=== PATIENT | male | born 1950 | race Caucasian/White ===

== ENCOUNTER → 2016-09-26 | Outpatient (CLI) | payer OTHER, MEDICARE | LOC: BMCIMAGING 10:33 | PROVIDERS: ATTEND Podiatrist Foot & Ankle Surgery | DX: S92.345A Nondisplaced fracture of fourth metatarsal bone, left foot, initial encounter for closed fracture (principal); R93.6 Abnormal findings on diagnostic imaging of limbs; M19.072 Primary osteoarthritis, left ankle and foot; M79.672 Pain in left foot ==

== ENCOUNTER → 2016-10-22 | Outpatient (CLI) | payer OTHER, MEDICARE | LOC: BHCLAF 12:45 | PROVIDERS: ATTEND Internal Medicine Cardiovascular Disease | DX: I25.10 Atherosclerotic heart disease of native coronary artery without angina pectoris (principal); I48.91 Unspecified atrial fibrillation; Z95.0 Presence of cardiac pacemaker | CPT/HCPCS: 93005-PO ==

== ENCOUNTER → 2016-11-22 | Outpatient (CLI) | payer OTHER, MEDICARE | LOC: CIMAGING 14:21 | PROVIDERS: ATTEND Physician Assistant | DX: M51.26 Other intervertebral disc displacement, lumbar region (principal); M51.27 Other intervertebral disc displacement, lumbosacral region; M48.06 Spinal stenosis, lumbar region; M48.07 Spinal stenosis, lumbosacral region; M53.3 Sacrococcygeal disorders, not elsewhere classified | CPT/HCPCS: 72131-PO ==

== ENCOUNTER → 2016-11-30 | Outpatient (CLI) | payer OTHER, MEDICARE | LOC: BHCLAF 14:00 | PROVIDERS: ATTEND Internal Medicine Cardiovascular Disease | DX: I25.10 Atherosclerotic heart disease of native coronary artery without angina pectoris (principal) | CPT/HCPCS: 93306-PO ==

== ENCOUNTER → 2017-06-18 | Outpatient (CLI) | payer OTHER, MEDICARE | LOC: BHLMT 14:00 | PROVIDERS: ATTEND Internal Medicine Cardiovascular Disease | DX: I48.0 Paroxysmal atrial fibrillation (principal); I10 Essential (primary) hypertension | CPT/HCPCS: 78452; 93017; A9500; J2785 ==

== ENCOUNTER 2017-07-19 12:02 | Day surgery (SDC) | payer OTHER, MEDICARE ==
[2017-07-19] MEDS ORDERED: DIAZEPAM 5 MG TAB PO ONE (12:11)
[2017-07-19] MEDS ORDERED: NS 1,000 ML IV ONE (12:11)
[2017-07-19] MEDS ORDERED: diphenhydrAMINE 25 MG CAP PO ONE (12:11)
[2017-07-19] MEDS ORDERED: ASPIRIN EC 325 MG TAB PO ONE (12:11)
[2017-07-19] MEDS ORDERED: FAMOTIDINE 20 MG TAB PO ONE (12:11)
--- NOTE | 2017-07-19 12:27 | CPEKG ---
Heart Rate: 60 RR Interval: 1000 P-R Interval: 208 QRSD Interval: 148 QT Interval: 472 QTC Interval: 472 P [place]: 72 QRS [place]: -83 T Wave [place]: 100 EKG Severity - ABNORMAL ECG - EKG Impression: ATRIAL-VENTRICULAR DUAL-PACED RHYTHM Electronically Signed By: Corby Cortes 19-Jul-2017 14:15:21
[2017-07-19] MEDS ORDERED: LIDOCAINE 1% 300 MG/30 ML SDV ONE (12:36)
[2017-07-19] MEDS ORDERED: IOPAMIDOL (ISOVUE-370) 150 ML BTL IV ONE ×2 (12:37→14:28)
[2017-07-19 12:46] LABS: PLATELET COUNT 100 10^3/uL (150-400)
[2017-07-19 12:58] LABS: INR 1.05 (0.83-1.16); PROTIME(PATIENT) 13.9 SEC (12.0-15.0)
--- NOTE | 2017-07-19 13:38 | PDHPUP ---
History & Physical Update H&P update statement: This history and physical update is based on an assessment of the patient which was completed after admission or registration (within 24 hours), but prior to the surgery/procedure. H&P update: H&P reviewed & patient examined, no change in patient's condition since H&P completed
--- NOTE | 2017-07-19 13:38 | PDPROPOC ---
Sedation Plan of Care Sedation Plan of Care: vital signs stable, mental status noted, patient educated of risks, benefits, alternatives, patient can tolerate sedation ASA Classification: ASA 2 Planned drugs: fentanyl, midazolam Mallampati Score: Class 2 Mallampati Reference Image: Patient passed 3-3-2 rule?: Yes
[2017-07-19] MEDS ORDERED: MIDAZOLAM 2 MG/2 ML VIAL ONE (14:01)
[2017-07-19] MEDS ORDERED: fentaNYL 100 MCG/2 ML INJ ONE (14:01)
--- NOTE | 2017-07-19 15:17 | PDDXCAT ---
Diagnostic Cath Note - . Date: 07/19/17 [employer]: Marita Indication: Class I/II angina, intolerance to med therapy or failure to respond - Procedure Access: right groin Procedure: left heart catheterization, coronary angiography, left ventriculogram , NI injection, other (free radial injection) - Materials Left Heart Cath size: 6F Left Heart Cath materials: standard multipack (JL4, JR4, pigtail), other (IMC catheter) - Findings-Left Heart Catheterization LM: Normal and bifurcates into the LAD and left circumflex. LAD: There is a 90% proximal stenosis. There are several fairly large septal perforators. There is GABRIELLA 3 flow in the mid to distal vessel with evidence of competitive flow from the NI graft. LCX: 100% occluded proximally RCA: Right dominant. 50% mid vessel lesion. rSVG: The free radial graft with sequential anastomoses to the 1st and 2nd obtuse marginals is patent with good flow in the obtuse marginals. NI: The NI to LAD is widely patent. EDP: 26 LVEF: 65% Wall motion: Normal - Findings-Right Heart Catheterization AO: Aortic pressure is 130/70. LV pressure is 124 for 7. There is no aortic stenosis. Complications: none Estimated blood loss: <50ml Closure method: Angioseal Assessment: Known severe left system disease. Moderate non flow-limiting RCA disease. Patent NI to the LA D. Patent sequential free radial graft to both obtuse marginals. Normal ejection fraction. Plan: No intervention. Evaluate for noncardiac causes of chest pain.
[2017-07-19] MEDS ORDERED: ATROPINE SULFATE 1 MG/10 ML SYR IVP PRN (15:23)
[2017-07-19] MEDS ORDERED: ONDANSETRON 4 MG/2 ML VIAL IVP PRN (15:23)
[2017-07-19] MEDS ORDERED: OXYCODONE/APAP 5/325 TAB PO PRN (15:23)
[2017-07-19] MEDS ORDERED: HYDROCODONE/APAP 5/325 TAB PO PRN (15:23)
[2017-07-19] MEDS ORDERED: NITROGLYCERIN 0.4 MG BTL SL PRN (15:23)
== END 2017-07-19 18:03 | disposition home or self-care (01) ==
LOC: FCATH 12:02
PROVIDERS: ATTEND Internal Medicine Cardiovascular Disease
DX: I25.119 Atherosclerotic heart disease of native coronary artery with unspecified angina pectoris (principal); I10 Essential (primary) hypertension; E78.5 Hyperlipidemia, unspecified; I48.0 Paroxysmal atrial fibrillation; I49.5 Sick sinus syndrome; Z95.1 Presence of aortocoronary bypass graft; Z79.01 Long term (current) use of anticoagulants; Z95.0 Presence of cardiac pacemaker
CPT/HCPCS: C1760; J1644; J2250; J3010; Q9967

== ENCOUNTER → 2017-12-17 | Outpatient (CLI) | payer OTHER, MEDICARE | LOC: BMCIMAGING 12:47 | PROVIDERS: ATTEND Internal Medicine Rheumatology | DX: M25.552 Pain in left hip (principal) ==

== ENCOUNTER → 2018-01-09 | Outpatient (CLI) | payer OTHER, MEDICARE | LOC: BHFA 13:00 | PROVIDERS: ATTEND Internal Medicine Cardiovascular Disease | DX: I47.2 Ventricular tachycardia (principal); I48.92 Unspecified atrial flutter; I25.10 Atherosclerotic heart disease of native coronary artery without angina pectoris; M06.9 Rheumatoid arthritis, unspecified; Z95.0 Presence of cardiac pacemaker ==

== ENCOUNTER 2018-02-11 06:56 | Day surgery (SDC) | payer OTHER, MEDICARE ==
[2018-02-11] MEDS ORDERED: NS 1,000 ML IV ONE (06:57)
[2018-02-11 07:35] LABS: PLATELET COUNT 96 10^3/uL (150-400)
[2018-02-11 07:43] LABS: INR 1.05 (0.83-1.16); PROTIME(PATIENT) 13.9 SEC (12.0-15.0)
[2018-02-11] MEDS ORDERED: MIDAZOLAM 2 MG/2 ML VIAL IVP ONE (07:52)
--- NOTE | 2018-02-11 07:52 | PDANEPAE ---
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 - Allergies Allergies/Adverse Reactions: hydroxychloroquine Allergy (Verified 07/19/17 13:50) chest itch - Home Medications Home medications: home medication list seen and reviewed Home Medications: Actemra 800mg 800 mg IV Q28D 06/05/13 [Last Taken 1 Day Ago ~02/10/18] Herbals/Supplements -Info Only 1 each PO DAILY 06/05/13 [Last Taken 1 Day Ago ~ 02/10/18] Leflunomide [Arava 20 mg (*)] 20 mg PO Q2D 06/05/13 [Last Taken 1 Day Ago ~02/10] Levothyroxine [Synthroid 75 mcg (*)] 75 mcg PO DAILY06 06/05/13 [Last Taken 1 Day Ago ~02/10/18] Multivitamins [Multivitamin (*)] 1 each PO DAILY 06/05/13 [Last Taken 1 Day Ago ~02/10/18] Omeprazole [Prilosec 20 mg] 20 mg PO DAILY 06/05/13 [Last Taken 1 Day Ago ~02/10] Pilocarpine HCl [Salagen 5mg (*)] 5 mg PO TID 06/05/13 [Last Taken 1 Day Ago ~] cycloSPORINE 0.05% [Restasis Opht Drops(*)] 1 drop EACHEYE BID 06/05/13 [Last Taken 1 Day Ago ~02/10/18] valACYclovir [Valtrex (*)] 1,000 mg PO BID PRN 06/05/13 [Last Taken 1 Day Ago ~ 02/10/18] Cholecalciferol Vit D3 [Vitamin D3 (*)] 1,000 units PO BID 01/25/14 [Last Taken 1 Day Ago ~02/10/18] Fluticasone Nasal [Flonase Nasal [place]] 1 sprays NASAL DAILY PRN 01/25/14 [Last Taken 1 Day Ago ~02/10/18] Loratadine [Claritin 10 mg] 10 mg PO DAILY 01/25/14 [Last Taken 1 Day Ago ~02/10] Aspirin [Aspirin 81mg (*)] 81 mg PO DAILY 07/19/17 [Last Taken 1 Day Ago ~] Cephalexin [Keflex (*)] 500 mg PO BID 07/19/17 [Last Taken 1 Day Ago ~02/10/18] Metoprolol Tartrate [Lopressor 25 mg (*)] 25 mg PO DAILY 07/19/17 [Last Taken 2 Days Ago ~02/09/18] Metoprolol Tartrate [Lopressor 50 mg (*)] 50 mg PO HS 07/19/17 [Last Taken 2 Days Ago ~02/09/18] Nitroglycerin [Nitrostat 0.4 mg (*)] 0.4 mg SL Q5M PRN 07/19/17 [Last Taken Unknown] Rosuvastatin Calcium [Crestor] 10 mg PO HS 07/19/17 [Last Taken 1 Day Ago ~02/10] tiZANidine HCL [Zanaflex 2MG (*)] 4 mg PO TID PRN 07/19/17 [Last Taken 1 Day Ago ~02/10/18] - NPO status NPO Status: no food or drink >8 hours - Anes Hx Anes Hx: no prior problems - Smoking Hx Smoking Status: Former smoker - Family Anes Hx Family Anes Hx: none ANE Labs/Vital Signs - Labs Result Diagrams: 02/11/18 07:10 02/11/18 07:10 - Vital Signs Vital Signs: reviewed preoperatively; see RN documention for details Height: 180.34 cm Weight: 97.522 kg ANE Physical Exam - Airway Neck exam: FROM Mallampati Score: Class 2 Mouth exam: poor dentition - Pulmonary Pulmonary: no respiratory distress - Cardiovascular Cardiovascular: regular rate and rhythym - ASA Status ASA Status: III ANE Anesthesia Plan Anesthesia Plan: general endotracheal anesthesia
[2018-02-11] MEDS ORDERED: DEXAMETHASONE 4 MG/ML VIAL ONE (08:14)
[2018-02-11] MEDS ORDERED: ONDANSETRON 4 MG/2 ML VIAL ONE (08:14)
[2018-02-11] MEDS ORDERED: PROPOFOL 200 MG/20 ML VIAL ONE ×2 (08:14→10:25)
[2018-02-11] MEDS ORDERED: LIDOCAINE 2% 100 MG/5 ML SYR ONE (08:14)
[2018-02-11] MEDS ORDERED: ROCURONIUM 50 MG/5 ML VIAL ONE (08:14)
[2018-02-11] MEDS ORDERED: fentaNYL 100 MCG/2 ML INJ ONE (08:14)
--- NOTE | 2018-02-11 08:54 | PDGENHP ---
History & Physical Chief Complaint: vt on pm check Relevant Physical Exam: s1s2 rrr cta ao3 Cardiorespiratory Assessment: for eps and upgrade to icd if vt induced. no ablation planned
[2018-02-11] MEDS ORDERED: MIDAZOLAM 2 MG/2 ML VIAL ONE (10:14)
[2018-02-11] MEDS ORDERED: LIDOCAINE 1% 300 MG/30 ML SDV ONE (10:14)
[2018-02-11] MEDS ORDERED: BUPIVACAINE 0.75% 10 ML SDV ONE (10:14)
[2018-02-11] MEDS ORDERED: ISOPROTERENOL HCL/D5W 0.2 MG/50 ML BAG IV ONE (10:14)
[2018-02-11] MEDS ORDERED: ceFAZolin 2 GM in D5W 100 ML IV ONE (10:45)
[2018-02-11] MEDS ORDERED: BACITRACIN 50,000 UNIT in SODIUM CL IRRIG SOLUTION 1,000 ML IRR ONE (11:00)
[2018-02-11] MEDS ORDERED: ceFAZolin 2 GM/DEXTROSE 100 ML IV ONE (11:00)
--- NOTE | 2018-02-11 11:37 | EPPROC ---
Electrophysiology Procedure Note: DIAGNOSTIC ELECTROPHYSIOLOGIC STUDY Procedures performed: 1. Fluoroscopy 2. EP evaluation with RA/RV pace/record, with arrhythmia induction 3. EP evaluation with RA/RV pace record, insert/reposition catheter, with arrhythmia induction 4. Programmed stimulation + pacing after IV drug INDICATION: Nonsustained VT on pacemaker check PROCEDURE: Catheters & Anesthesia: The patient arrived in the Electrophysiology Laboratory in the fasting state. The right clavicular region, right groin, & left groin area were prepped & draped in the usual sterile manner. Dr. Naveen Ventura administered anesthesia. Appropriate non-invasive blood pressure, pulse oximetry & end-tidal CO2 monitoring was established. All catheters were placed percutaneously using the modified Seldinger technique , and advanced into position under fluoroscopic guidance. One #7 Irish deflectable octapolar electrode catheter was advanced to the His-bundle position via the left femoral vein (2mm spacing). One #7 Irish 20 pole quadrapolar catheter was advanced to the posterior right atrium and placed along the frantz terminalis. Programmed stimulation was performed from the right atrium, right ventricle. There was antegrade WBB at baseline. No sustained ventricular tachycardia was induced during programmed stimulation, using standard protocols, at baseline or during graded doses of isoproterenol up to 2 mcg/min. The catheters were removed. Vascular access sheaths were removed in the EP lab after placing subcutaneous pursestring suture. The patient was transferred to the cardiovascular holding area in stable condition. There were no apparent complications. CONCLUSIONS 1. Normal sinus and AV node function. 2. No sustained ventricular arrhythmias induced. 3. No apparent complications. Patient Problems: Problems Problem Status Onset Ventricular tachycardia Acute
[2018-02-11] MEDS ORDERED: ONDANSETRON 4 MG/2 ML VIAL IVP PRN (11:43)
[2018-02-11] MEDS ORDERED: HYDROmorphONE/DILAUDID 2 MG/ML INJ IVP PRN (11:43)
[2018-02-11] MEDS ORDERED: DEXAMETHASONE 4 MG/ML VIAL IVP PRN (11:43)
[2018-02-11] MEDS ORDERED: ACETAMINOPHEN 500 MG TAB PO PRN (11:43)
[2018-02-11] MEDS ORDERED: HYDROCODONE/APAP 5/325 TAB PO PRN (11:43)
[2018-02-11] MEDS ORDERED: oxyCODONE IR 5 MG TAB PO PRN (11:43)
[2018-02-11] MEDS ORDERED: fentaNYL 100 MCG/2 ML INJ IVP PRN (11:43)
[2018-02-11] MEDS ORDERED: NALOXONE HCL 0.4 MG/ML INJ IVP PRN (11:43)
[2018-02-11] MEDS ORDERED: MEPERIDINE 25 MG/0.5 ML AMP IVP PRN (11:43)
--- NOTE | 2018-02-11 11:43 | POSTANESTH ---
Post Anesthetic Evaluation Cardiovascular Status: Similar to Pre-Op Cond Respiratory Status: Similar to Pre-op Cond. Level of Consciousness/Mental Status: Can Participate in Eval, Mildly Sleepy, Arousable Pain Control: Adequate, Prn Tx Ordered Nausea/Vomiting Control: Adequate, Prn Tx Ordered Complications Possibly Related to Anesthesia: None Noted
[2018-02-11] MEDS ORDERED: KETOROLAC 30 MG/1 ML SDV ONE (11:53)
[2018-02-11] MEDS ORDERED: KETOROLAC 15 MG/1 ML SDV IVP ONE (12:00)
[2018-02-11] MEDS ORDERED: KETOROLAC 15 MG/1 ML SDV IVP PRN (12:30)
--- NOTE | 2018-02-16 14:47 | CPEKG ---
Test Reason : OPEN Blood Pressure : / mmHG Vent. Rate : 060 BPM Atrial Rate : 060 BPM P-R Int : 202 ms QRS Dur : 154 ms QT Int : 491 ms P-R-T Axes : 081 -83 097 degrees QTc Int : 491 ms Atrial-ventricular dual-paced complexes Confirmed by Edward Langford ([id number]) on 02/16/2018 2:46:54 PM Referred By: Confirmed By:Edward Langford
== END 2018-02-11 17:54 | disposition home or self-care (01) ==
LOC: FCATH 06:56
PROVIDERS: ATTEND Internal Medicine Cardiovascular Disease
PROC: 5A1223Z Performance of Cardiac Pacing, Continuous (ICD-10-PCS; principal; 2018-02-11)
DX: I47.1 Supraventricular tachycardia (principal); I48.92 Unspecified atrial flutter; Z95.0 Presence of cardiac pacemaker
CPT/HCPCS: C1731; J0690; J1100; J1644; J1885; J2001; J2250; J2405; J2704; J3010

== ENCOUNTER → 2018-05-15 | Outpatient (CLI) | payer OTHER, MEDICARE | LOC: FIMAGING 10:31 | PROVIDERS: ATTEND Orthopaedic Surgery | DX: M16.12 Unilateral primary osteoarthritis, left hip (principal) ==

== ENCOUNTER 2018-06-09 06:01 | Inpatient (IN) | payer OTHER, MEDICARE ==
[2018-06-09] MEDS ORDERED: ACETAMINOPHEN 325 MG TAB PO ONE (06:20)
[2018-06-09] MEDS ORDERED: FAMOTIDINE 20 MG TAB PO ONE (06:20)
--- NOTE | 2018-06-09 06:35 | PDHPUP ---
History & Physical Update H&P update statement: This history and physical update is based on an assessment of the patient which was completed after admission or registration (within 24 hours), but prior to the surgery/procedure. H&P update: no change in patient's condition since H&P completed
--- NOTE | 2018-06-09 06:35 | PDIAF ---
- Diagnosis Diagnosis: left hip djd Code Status: Full Code - Medication Management Discharge Medications: electronically signed and located in the Home Medication List. - Orders Services needed: Home Care, Physical Therapy Home Care Face to Face: I certify that this patient was under my care and that I had the required [id number] encounter meeting the encounter requirements on the discharge day. My findings support the fact that the patient is homebound as defined in Home Care Face to Face Continued: CMS Chapter 7 Medicare Benefits Manual 30.1.1 , The condition of the patient is such that there exists a normal inability to leave home and consequently, leaving home would require a considerable and taxing effort. Isolation Type: None Diet Recommendation: no restrictions on diet Diet Texture: Regular Texture Diet Additional Instructions: TOTAL JOINT ARTHROPLASTY DISCHARGE INSTRUCTIONS 1. Your surgeon follows the [facility] protocol for reducing your risk of DVT (blood clots) following surgery. Medication will be ordered to prevent blood clots. A sudden increase in calf pain and/or swelling could indicate a blood clot in your leg. If this occurs, please call your surgeon or his/her digital sales assistant. An ultrasound of the leg may be necessary to diagnose a blood clot. If you have conditions that make you a higher risk for blood clots, your surgeon may use more aggressive ways to prevent them. Notify your surgeon if you think you are a high risk for blood clots. 2. Wear your white surgical stockings (SHAYY hose) for 2 weeks. This decreases your swelling and may help prevent blood clots. It is ok to remove SHAYY hose at night time to give your legs a break. 3. Swelling and bruising in the surgical leg is common. If you feel that it is excessive, please notify your surgeon. 4. Elevate your surgical leg with the ankle above the hip several times every day. Please keep the leg straight when you elevate by putting pillows under your foot. Do not put pillows under your knee. This will make being able to fully straighten more difficult. This is uncomfortable, but try to do it as much as possible. 5. For total knee replacements use compressive wrap on your knee for 3-5 days after surgery, then you can discontinue it. 6. Use a walker or crutches for 1-2 weeks. Progress your weight-bearing as tolerated. You may start to use a cane when you feel stable and safe. 7. You will receive physical therapy instructions in the hospital. Continue those exercises at home. There are additional exercises in the total joint booklet you were given before surgery. Outpatient physical therapy will begin 7- 10 days after surgery. Please schedule this in advance. 8. Use ice on your knee at least 3-5 times every day for 30 minutes. This helps reduce pain and swelling. Also use it at night before falling asleep. 9. Leave your surgical dressing in place for 2 weeks. Your dressing is water resistant, but not waterproof. Cover it with Saran Wrap or Ggrbz-k-Wugw before showering. You may shower as soon as you feel safe entering a shower. If you notice bleeding from your incision 2 or 3 days after surgery, please notify your surgeon. 10. Due to narcotics, decreased activity and altered diet, most patients experience constipation after surgery. Use siyj-ubc-xcxojar stool softeners while you are on narcotics. 11. You may drive a car when you are comfortable bearing weight, have good muscular control of your leg and are off narcotics. This usually occurs 2-4 weeks after surgery, depending on which leg was operated on. 12. If there are questions not addressed here, please refer the [facility] book given for more information. If you still have questions, please contact your surgeon s office. 13. If you have a life-threatening emergency, please call 911 and go to the emergency room immediately. For non-life threatening emergencies, please call your physicians office for advice before going to the emergency room. - Follow Up Care Current Providers and Referrals: Skyler Castorena MD [Primary Care Provider] - Taras Hernández MD [Medical Doctor] -
[2018-06-09] MEDS ORDERED: ceFAZolin 1 GM/5 ML SYR ONE (06:58)
[2018-06-09] MEDS ORDERED: ceFAZolin 2 GM/DEXTROSE 100 ML IV ONE (07:00)
[2018-06-09] MEDS ORDERED: ROPIVACAINE 0.2% 80 MG, EPINEPHrine 0.2 MG, KETOROLAC TROMETHAMINE 30 MG, morphINE 10 M... IU ONE (07:00)
[2018-06-09] MEDS ORDERED: TRANEXAMIC ACID 1,000 MG in NS 100 ML IV ONE (07:00)
[2018-06-09] MEDS ORDERED: MIDAZOLAM 2 MG/2 ML VIAL IVP ONE (07:25)
--- NOTE | 2018-06-09 07:26 | PDANEPAE ---
ANE Past Medical History - Cardiovascular History Hx Hypertension: Yes Hx Arrhythmias: Yes Hx Chest Pain: No Hx Coronary Artery / Peripheral Vascular Disease: Yes Hx CHF / Valvular Disease: No Hx Palpitations: No - Pulmonary History Hx COPD: No Hx Asthma/Reactive Airway Disease: No Hx Recent Upper Respiratory Infection: No Hx Oxygen in Use at Home: No Hx Sleep Apnea: No Sleep Apnea Screening Result - Last Documented: Positive - Neurologic History Hx Cerebrovascular Accident: No Hx Seizures: No Hx Dementia: No - Endocrine History Hx Diabetes: No - Renal History Hx Renal Disorders: No - Liver History Hx Hepatic Disorders: No - Neurological & Psychiatric Hx Hx Neurological and Psychiatric Disorders: No - Cancer History Hx Cancer: No - Congenital Disorder History Hx Congenital Disorders: No - GI History Hx Gastrointestinal Disorders: Yes Gastrointestinal History Comment: PUD - Other Health History Other Health History: none - Chronic Pain History Chronic Pain: No - Surgical History Prior Surgeries: PPM 2018. cardiac cath. 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 Pacemaker Model: 2210 Betsy BARNES RF Pacemaker Mode: DDDR Date Pacemaker Last Checked: 03/13/18 ANE Patient History - Allergies Allergies/Adverse Reactions: hydroxychloroquine Allergy (Verified 05/19/18 12:23) chest itch - Home Medications Home Medications: Actemra 800mg 800 mg IV Q28D 06/05/13 [Last Taken 05/08/18] Leflunomide [Arava 20 mg (*)] 20 mg PO DAILY18 06/05/13 [Last Taken 1 Day Ago ~ 02/10/18] Levothyroxine [Synthroid 75 mcg (*)] 75 mcg PO DAILY06 06/05/13 [Last Taken 1 Day Ago ~02/10/18] Multivitamins [Multivitamin (*)] 1 each PO DAILY 06/05/13 [Last Taken 1 Day Ago ~02/10/18] Omeprazole [Prilosec 20 mg] 20 mg PO DAILY 06/05/13 [Last Taken 1 Day Ago ~02/10] Pilocarpine HCl [Salagen 5mg (*)] 5 mg PO TID 06/05/13 [Last Taken 1 Day Ago ~] cycloSPORINE 0.05% [Restasis Opht Drops(*)] 1 drop EACHEYE BID 06/05/13 [Last Taken 1 Day Ago ~02/10/18] valACYclovir [Valtrex (*)] 1,000 mg PO BID PRN 06/05/13 [Last Taken 1 Day Ago ~ 02/10/18] Fluticasone Nasal [Flonase Nasal [place]] 1 sprays NASAL DAILY PRN 01/25/14 [Last Taken 1 Day Ago ~02/10/18] Loratadine [Claritin 10 mg] 10 mg PO DAILY 01/25/14 [Last Taken 1 Day Ago ~02/10] Aspirin [Aspirin 81mg (*)] 81 mg PO DAILY 07/19/17 [Last Taken 1 Day Ago ~] Cephalexin [Keflex (*)] 500 mg PO BID 07/19/17 [Last Taken 1 Day Ago ~02/10/18] Metoprolol Tartrate [Lopressor 50 mg (*)] 50 mg PO BID 07/19/17 [Last Taken 2 Days Ago ~02/09/18] Nitroglycerin [Nitrostat 0.4 mg (*)] 0.4 mg SL Q5M PRN 07/19/17 [Last Taken Unknown] Rosuvastatin Calcium [Crestor] 10 mg PO HS 07/19/17 [Last Taken 1 Day Ago ~02/10] Chlorzoxazone 500 mg PO TID PRN 05/15/18 [Last Taken Unknown] Cholecalciferol Vit D3 [Vitamin D3 2000 units tab (OTC)] 2,000 units PO BID [Last Taken Unknown] Herbals/Supplements -Info Only 1 ea PO DAILY 05/15/18 [Last Taken Unknown] guaiFENesin [Mucinex 600 MG (*)] 1,200 mg PO DAILY 05/15/18 [Last Taken Unknown] - Smoking Hx Smoking Status: Former smoker - Family Anes Hx Family Hx Anesthesia Complications: none ANE Labs/Vital Signs - Vital Signs Height: 180.34 cm Weight: 99.79 kg ANE Physical Exam - Airway Neck exam: FROM Mallampati Score: Class 2 Mouth exam: normal dental/mouth exam - Pulmonary Pulmonary: no respiratory distress - Cardiovascular Cardiovascular: regular rate and rhythym - ASA Status ASA Status: III ANE Anesthesia Plan Anesthesia Plan: spinal
[2018-06-09] MEDS ORDERED: fentaNYL 100 MCG/2 ML INJ ONE (07:32)
[2018-06-09] MEDS ORDERED: PROPOFOL/EMULSION 500 MG/50 ML BOTTLE IV ONE (07:33)
[2018-06-09] MEDS ORDERED: LIDOCAINE 2% 100 MG/5 ML SYR ONE (07:37)
[2018-06-09] MEDS ORDERED: fentaNYL 250 MCG/5 ML INJ ONE (09:08)
[2018-06-09] MEDS ORDERED: PHENYLEPHRINE HCL 100 MCG/ML SYR ONE (09:31)
[2018-06-09] MEDS ORDERED: NALOXONE HCL 0.4 MG/ML INJ IVP PRN (10:05)
[2018-06-09] MEDS ORDERED: ALBUTEROL 3 ML DEYVIAL IH PRN (10:05)
[2018-06-09] MEDS ORDERED: fentaNYL 100 MCG/2 ML INJ IVP PRN (10:05)
[2018-06-09] MEDS ORDERED: HYDROmorphONE/DILAUDID 2 MG/ML INJ IVP PRN (10:05)
[2018-06-09] MEDS ORDERED: MEPERIDINE 25 MG/0.5 ML AMP IVP PRN (10:05)
[2018-06-09] MEDS ORDERED: ONDANSETRON 4 MG/2 ML VIAL IVP PRN ×2 (10:05→10:24)
[2018-06-09] MEDS ORDERED: HYDROCODONE/APAP 5/325 TAB PO PRN (10:05)
[2018-06-09] MEDS ORDERED: ONDANSETRON 4 MG/2 ML VIAL ONE (10:16)
[2018-06-09] MEDS ORDERED: GLYCOPYRROLATE 0.2 MG/1 ML VIAL ONE ×2 (10:16)
[2018-06-09] MEDS ORDERED: NEOSTIGMINE METHYLSULFATE 5 MG/5 ML SYR ONE (10:16)
[2018-06-09] MEDS ORDERED: PROMETHAZINE HCL 25 MG/ML INJ IVP PRN (10:24)
[2018-06-09] MEDS ORDERED: TEMAZEPAM 15 MG CAP PO PRN (10:24)
[2018-06-09] MEDS ORDERED: LACTULOSE 20 GM/30 ML UDCUP PO PRN (10:24)
[2018-06-09] MEDS ORDERED: BISACODYL 10 MG SUPP PR PRN (10:24)
[2018-06-09] MEDS ORDERED: METOCLOPRAMIDE 10 MG/2 ML VIAL IVP PRN (10:24)
[2018-06-09] MEDS ORDERED: MAGNESIUM HYDROXIDE 30 ML UDCUP PO PRN (10:24)
[2018-06-09] MEDS ORDERED: DIPHENOXYLATE/ATROPINE LOMOTIL 1 TAB PO PRN (10:24)
[2018-06-09] MEDS ORDERED: oxyCODONE IR 5 MG TAB PO PRN (10:24)
[2018-06-09] MEDS ORDERED: CYCLOBENZAPRINE 10 MG TAB PO PRN (10:24)
[2018-06-09] MEDS ORDERED: ONDANSETRON DISINTEGRATING 4 MG TAB PO PRN (10:24)
[2018-06-09] MEDS ORDERED: PROMETHAZINE HCL 25 MG SUPPR PR PRN (10:24)
[2018-06-09] MEDS ORDERED: diphenhydrAMINE 25 MG CAP PO PRN (10:24)
[2018-06-09] MEDS ORDERED: POLYETHYLENE GLYCOL 3350 17 GM PKT PO PRN (10:24)
--- NOTE | 2018-06-09 10:24 | POSTOPPROG ---
Post Op Note Date of Operation: 06/09/18 Surgeon: Taras Hernández Quality Assurance Monitor: luisa Anesthesiologist: waldo Anesthesia: GET(General Endotracheal) Pre-op Diagnosis: left hip djd Post-op Diagnosis: same Indication: kenji Procedure: left astrid Inf/Abcess present in the surg proc area at time of surgery?: No Depth: Deep Incisional (Fascial) EBL: 100-500 Drains: Hemovac
[2018-06-09] MEDS ORDERED: NITROGLYCERIN 0.4 MG BTL SL PRN (10:25)
[2018-06-09] MEDS ORDERED: valACYclovir 500 MG TAB PO PRN (10:25)
[2018-06-09] MEDS ORDERED: LR 1,000 ML IV SCH (10:30)
[2018-06-09] MEDS ORDERED: FLUTICASONE NASAL 120 SPRAYS/16 GM MDI EACHNARE PRN (10:41)
--- NOTE | 2018-06-09 10:42 | POSTANESTH ---
Post Anesthetic Evaluation Cardiovascular Status: Similar to Pre-Op Cond, Other, See Comment Respiratory Status: Similar to Pre-op Cond. Level of Consciousness/Mental Status: Mildly Sleepy, Arousable Pain Control: Adequate, Prn Tx Ordered Nausea/Vomiting Control: Adequate, Prn Tx Ordered Complications Possibly Related to Anesthesia: None Noted
--- NOTE | 2018-06-09 10:44 | PDMN ---
Medical Necessity Medical [place] [facility] [place], A-2 days: 68 yo s/p L JAREN, [facility] IP only
[2018-06-09] MEDS: ACETAMINOPHEN 325 MG TAB PO SCH ×3 (13:30→23:58)
[2018-06-09] MEDS: TRANEXAMIC ACID 650 MG TAB PO SCH ×2 (16:43→21:34)
[2018-06-09] MEDS: PILOCARPINE HCL 5 MG TAB PO SCH ×2 (16:43→21:34)
[2018-06-09] MEDS: ceFAZolin 2 GM/DEXTROSE 100 ML IV SCH ×2 (16:47→23:58)
[2018-06-09] MEDS ORDERED: ROSUVASTATIN CALCIUM 10 MG TAB PO SCH (21:00)
[2018-06-09] MEDS: SENNOSIDES/DOCUSATE SODIUM TAB PO SCH (21:33)
[2018-06-09] MEDS: FAMOTIDINE 20 MG TAB PO SCH (21:34)
[2018-06-09] MEDS: METOPROLOL TARTRATE 50 MG TAB PO SCH (21:34)
[2018-06-09] MEDS: cycloSPORINE 0.05% 30 DROPERETTE/BOX EACHEYE SCH (21:40)
[2018-06-10] MEDS ORDERED: LEVOTHYROXINE 75 MCG TAB PO SCH (06:00)
[2018-06-10] MEDS: TRANEXAMIC ACID 650 MG TAB PO SCH (06:06)
[2018-06-10] MEDS: ACETAMINOPHEN 325 MG TAB PO SCH (06:07)
--- NOTE | 2018-06-10 06:52 | PDIAF ---
- Diagnosis Diagnosis: left hip djd Code Status: Full Code - Medication Management Discharge Medications: electronically signed and located in the Home Medication List. - Orders Services needed: Home Care, Physical Therapy Home Care Face to Face: I certify that this patient was under my care and that I had the required raae-sm-pnoq encounter meeting the encounter requirements on the discharge day. My findings support the fact that the patient is homebound as defined in Home Care Face to Face Continued: CMS Chapter 7 Medicare Benefits Manual 30.1.1 , The condition of the patient is such that there exists a normal inability to leave home and consequently, leaving home would require a considerable and taxing effort. Isolation Type: None Diet Recommendation: no restrictions on diet Diet Texture: Regular Texture Diet Additional Instructions: TOTAL JOINT ARTHROPLASTY DISCHARGE INSTRUCTIONS 1. Your surgeon follows the [facility] protocol for reducing your risk of DVT (blood clots) following surgery. Medication will be ordered to prevent blood clots. A sudden increase in calf pain and/or swelling could indicate a blood clot in your leg. If this occurs, please call your surgeon or his/her general surgery physician assistant. An ultrasound of the leg may be necessary to diagnose a blood clot. If you have conditions that make you a higher risk for blood clots, your surgeon may use more aggressive ways to prevent them. Notify your surgeon if you think you are a high risk for blood clots. 2. Wear your white surgical stockings (SHAYY hose) for 2 weeks. This decreases your swelling and may help prevent blood clots. It is ok to remove SHAYY hose at night time to give your legs a break. 3. Swelling and bruising in the surgical leg is common. If you feel that it is excessive, please notify your surgeon. 4. Elevate your surgical leg with the ankle above the hip several times every day. Please keep the leg straight when you elevate by putting pillows under your foot. Do not put pillows under your knee. This will make being able to fully straighten more difficult. This is uncomfortable, but try to do it as much as possible. 5. For total knee replacements use compressive wrap on your knee for 3-5 days after surgery, then you can discontinue it. 6. Use a walker or crutches for 1-2 weeks. Progress your weight-bearing as tolerated. You may start to use a cane when you feel stable and safe. 7. You will receive physical therapy instructions in the hospital. Continue those exercises at home. There are additional exercises in the total joint booklet you were given before surgery. Outpatient physical therapy will begin 7- 10 days after surgery. Please schedule this in advance. 8. Use ice on your knee at least 3-5 times every day for 30 minutes. This helps reduce pain and swelling. Also use it at night before falling asleep. 9. Leave your surgical dressing in place for 2 weeks. Your dressing is water resistant, but not waterproof. Cover it with Saran Wrap or Axjrj-l-Mbdn before showering. You may shower as soon as you feel safe entering a shower. If you notice bleeding from your incision 2 or 3 days after surgery, please notify your surgeon. 10. Due to narcotics, decreased activity and altered diet, most patients experience constipation after surgery. Use chrm-zfc-tzpeexy stool softeners while you are on narcotics. 11. You may drive a car when you are comfortable bearing weight, have good muscular control of your leg and are off narcotics. This usually occurs 2-4 weeks after surgery, depending on which leg was operated on. 12. If there are questions not addressed here, please refer the [facility] book given for more information. If you still have questions, please contact your surgeon s office. 13. If you have a life-threatening emergency, please call 911 and go to the emergency room immediately. For non-life threatening emergencies, please call your physicians office for advice before going to the emergency room. - Follow Up Care Current Providers and Referrals: Skyler Castorena MD [Primary Care Provider] - Taras Hernández MD [Medical Doctor] -
--- NOTE | 2018-06-10 06:54 | SOAPPROG ---
SOAP Progress Note Assessment/Plan: Assessment: s/p astrid Plan:d/c home when cleared by pt maintain pressure dressing lovenox today then resume eliquis tomorrow may resume baby aspirin f/u for complication 06/10/18 06:52 Subjective: minimal pain no cp or sob naz po Objective: Vital Signs Temp Pulse Resp BP Pulse Ox 36.6 C 62 17 120/71 96 06/10/18 04:00 06/10/18 04:00 06/10/18 04:00 06/10/18 04:00 06/10/18 04:00 Laboratory Results 06/10/18 04:22 06/09/18 06/10/18 06/11/18 05:59 05:59 05:59 Intake Total 2945 Output Total 2470 Balance 475 dressing intact intact pf, df,ehl toes warm and pink neg homans simone xrays stable anatomic alignment, no fx or lucency ICD10 Worksheet Patient Problems: Problems Problem Status Onset Ventricular tachycardia Acute
[2018-06-10] MEDS ORDERED: PANTOPRAZOLE SODIUM 40 MG TAB PO SCH (09:00)
[2018-06-10] MEDS ORDERED: ENOXAPARIN 40 MG/0.4 ML SYR SC SCH (09:00)
[2018-06-10] MEDS ORDERED: guaiFENesin 600 MG TAB.ER PO SCH (09:00)
[2018-06-10] MEDS: FAMOTIDINE 20 MG TAB PO SCH (09:07)
[2018-06-10] MEDS: METOPROLOL TARTRATE 50 MG TAB PO SCH (09:09)
[2018-06-10] MEDS: PILOCARPINE HCL 5 MG TAB PO SCH (09:09)
[2018-06-10] MEDS: SENNOSIDES/DOCUSATE SODIUM TAB PO SCH (09:10)
[2018-06-10 09:11] VITALS: BP 93/56
--- NOTE | 2018-06-10 10:43 | ASMTLACE ---
LACE Length of stay for Answers: 2 days current admission Acuity / Level of Answers: Yes Care: Did the patient have an inpatient admission? Comorbidities - select Answers: Coronary Artery Disease all that apply Other Notes: HTN # of Emergency department Answers: 0 visits in the last 6 months Score: 8 Date Signed: 06/10/2018 10:42 AM Electronically Signed By:DELMIS Hayes
--- NOTE | 2018-06-10 10:44 | ASMTCMCOM ---
CM Note CM Note Notes: Pt had planned OA of hip. Pt medically stable for d/c with [facility], orders to be obtained via [facility]. Pt address/phone verified. Date Signed: 06/10/2018 10:43 AM Electronically Signed By:DELMIS Hayes
--- NOTE | 2018-06-10 10:52 | ASDISCHSUM ---
Discharge Information Plan Status:Home with Home Health Medically Cleared to Leave: Discharge Date:06/10/2018 10:39 AM CM D/C Disposition: ADT D/C Disposition:Home Health Service Projected Discharge Date:06/10/2018 11:00 AM Transportation at D/C: Discharge Delay Reason: Follow-Up Date:06/10/2018 11:00 AM Discharge Slot: Final Diagnosis: Placement Information Referral Type:*Home Health Care Services Referral ID:[id number] Provider Name:[facility] Address 1:[address] Address 2: City:[place] Selection Factors: State:[place] Patient Contact Information Contact Name:BERTACHARLOTTE Relationship: Address:[address] City:[place] Alternate Phone: State/Zip Code:[place] [address] Email: Financial Information Financial Class:Medicare Primary Plan Desc:MEDICARE INPATIENT Primary Plan Number:[id number] Secondary Plan Desc:[employer]/MDR SUPPLEMENT Secondary Plan Number:[id number] Assessment Information LACE LACE Length of stay for Answers: 2 days current admission Acuity / Level of Answers: Yes Care: Did the patient have an inpatient admission? Comorbidities - select Answers: Coronary Artery Disease all that apply Other Notes: HTN # of Emergency department Answers: 0 visits in the last 6 months Score: 8 Date Signed: 06/10/2018 10:42 AM Electronically Signed By:DELMIS Hayes [facility] CM Progress Note CM Note CM Note Notes: Pt had planned OA of hip. Pt medically stable for d/c with [facility], orders to be obtained via [facility]. Pt address/phone verified. Date Signed: 06/10/2018 10:43 AM Electronically Signed By:DELMIS Hayes Intervention Information
--- NOTE | 2018-06-10 11:36 | GDS ---
[f rep st] DISCHARGE SUMMARY ADMIT DIAGNOSIS: Left hip degenerative joint disease. DISCHARGE DIAGNOSIS: Left hip degenerative joint disease. NAME OF PROCEDURE: Left total hip arthroplasty. 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 He presents for elective total hip replacement. He understands the risks, benefits, altern atives and wishes to proceed. Written consent was signed and placed in the patient's chart. HOSPITAL COURSE: The patient was admitted to the hospital floor after uncomplicated total hip arthro plasty. He tolerated the procedure well. Overnight, he had no complications. At the time of discha rge, he is tolerating an oral diet. Pain is well controlled on oral medicines. He is voiding withou t difficulty. He has been cleared by Physical Therapy. He has negative Homans' bilaterally. X-rays are stable with anatomic alignment. No fracture or lucency. DISCHARGE MEDICATIONS: Oxycodone 5 mg 1 to 2 every 6 hours p.r.n. pain; Lovenox 40 mg subcutaneous f or an additional day then he will resume his Eliquis prescription. He may resume his baby aspirin, a s he took this previously with the Eliquis. FOLLOWUP: Follow up in 2 weeks. Seek attention for increasing redness, swelling, drainage, discharg e, bleeding, or other focal complaint. /[id number]/MODL
[2018-06-10] MEDS: cycloSPORINE 0.05% 30 DROPERETTE/BOX EACHEYE SCH (11:52)
--- NOTE | 2018-06-10 12:36 | GOP ---
[f rep st] OPERATIVE REPORT DATE OF OPERATION: 06/09/2018 SURGEON: Taras Hernández MD INTERTYPE OPERATOR: Jarett Dillon [facility], ophthalmology surgical technician, who was a medical necessity for the entirety of the case. PREOPERATIVE DIAGNOSIS: Left hip degenerative joint disease. POSTOPERATIVE DIAGNOSIS: Left hip degenerative joint disease. PROCEDURE PERFORMED: Left total hip arthroplasty. FINDINGS: SPECIMENS: To Pathology, the femoral head. INDICATIONS: The patient is a 68-year-old gentleman with end-stage arthritis to his left hip. Clini beth and radiographic features are consistent with this. He has failed all attempts at conservative m anagement. I have, therefore, recommended operative intervention. Following the surgical procedure, risks, benefits, and alternatives, he wishes to proceed. Written consent was signed and placed in p [facility]'s chart. DESCRIPTION OF PROCEDURE: The patient was identified in the preanesthesia area. The left hip clearl y demarcated as the operative site with indelible marker. He was given 2 g of Ancef intravenously en route to the operative suite. In the preoperative bay, the pacemaker rep evaluated the patient as w ell. In the OR, a general endotracheal anesthesia was administered. He was positioned in the supine position. All bony prominences were well padded. The pelvis and both lower extremities were steril deepika prepped and draped in the usual fashion. Appropriate time-out procedure was carried out. Attention was first turned to the right iliac crest. A 2 cm incision was made. Three pins were then placed, followed by the pelvic reference array. Attention was then turned to the left hip. An ante rior approach was made. Thick subcutaneous flaps were elevated. The tensor was retracted laterally. The underlying vascular structures were cauterized and transected. The rectus was elevated off the anterior capsule. Retractors placed into an extracapsular position. T-capsulotomy was made. Retra ctors were placed across the medial and superior aspect of the femoral neck. An acetabular checkpoin t was placed. A bony wedge was withdrawn from the femoral neck, followed by removal of the femoral h ead. The remnants of the soft tissue, acetabular, and labrum were sharply excised. The bony landmar ks were entered into the computer. Using a MAKOplasty software, a 52 mm reamer was placed at an open ing angle of 45 degrees and anteversion of 20 degrees. This was reamed to the appropriate depth. A 52 mm acetabular shell was placed, confirmed to be fully seated. A 0-degree X3 liner was placed and confirmed to be seated. Attention was then turned to the femur. It was delivered through the use of extension of the table. Soft tissue releases. Proximal canal was opened. Serial broaching carried out to a size 5 stem. Trial reduction was carried out. Appropriate stem position was confirmed und er image intensification. A size 5 stem was then impacted and confirmed to be fully seated. Additio nal trialing was carried out, and a 36 mm +0 mm neck length was ultimately selected. This allowed re storation of the leg lengths and stability profile demonstrated external rotation to 90 degrees prior to subluxation in full extension. The wound was copiously irrigated, the tissue instilled with a joint cocktail of ropivacaine, Toradol , and epinephrine. A 10-Hungarian PVC drain was placed. The fascia closed using 0 Vicryl, subcutaneous tissue using 2-0 Monocryl, and skin stapled. Sterile dressing was applied. The patient was awakene d, extubated, taken to recovery room in good, stable condition. TOTAL TOURNIQUET TIME: None. COMPLICATIONS: None. IMPLANTS: Radha Trident II acetabular shell size 52 mm, X3 zero-degree polyethylene insert 36 mm i nner diameter, Biolox ceramic head 36 mm +0 mm neck length, and Accolade II 127-degree neck angle hip stem size 5. DISPOSITION: To the recovery room, then the floor. /[id number]/MODL
== END 2018-06-10 10:39 | disposition home health service (06) | DRG 470 ==
LOC: F3N 06:01
PROVIDERS: ADMIT Orthopaedic Surgery; ATTEND Orthopaedic Surgery
DX: M16.12 Unilateral primary osteoarthritis, left hip (principal); I10 Essential (primary) hypertension; G47.30 Sleep apnea, unspecified; K27.9 Peptic ulcer, site unspecified, unspecified as acute or chronic, without hemorrhage or perforation; E78.00 Pure hypercholesterolemia, unspecified; I48.0 Paroxysmal atrial fibrillation; M05.79 Rheumatoid arthritis with rheumatoid factor of multiple sites without organ or systems involvement; E03.9 Hypothyroidism, unspecified; Z87.891 Personal history of nicotine dependence; Z95.1 Presence of aortocoronary bypass graft; Z95.0 Presence of cardiac pacemaker
CPT/HCPCS: 97110-GP; 97116-GP; 97161-GP; 97165-GO; J0171; J0690; J1650; J1885; J2001; J2250; J2270; J2370; J2405; J2704; J2710; J2795; J3010